=== PATIENT | male | born 1945 | race Caucasian/White ===

== ENCOUNTER 2016-05-07 12:11 | Outpatient (CLI) | payer MEDICARE, OTHER ==
[2016-05-07 12:48] LABS: #Basophils 0.1 thou/uL (0.0-0.2); #Eosinphils 0.2 thou/uL (0.0-0.7); #Lymphocytes 2.9 thou/uL (1.20-3.40); #Monocytes 0.8 thou/uL (0.11-0.59); #Neutrophils 5.7 thou/uL (1.40-6.50); %Basophils 1.4 % (0.0-1.0); %Eosinophils 2.4 % (0.0-10.0); %Lymphocytes 29.5 % (21.0-51.0); %Monocytes 8.1 % (0.0-10.0); %Neutrophils 58.5 % (42.0-75.0); Hemoglobin 15.9 g/dL (14.0-18.0); Mean Corpuscular HGB CONC 32.4 g/dL (32.0-36.0); Mean Corpuscular Hemoglobin 30.2 pg (27.0-31.0); Mean Corpuscular Volume 93.2 fl (80.0-94.0); Mean Platelet Volume 6.8 fL (7.4-10.4); Platelet Count 286 thou/uL (130-400); RBC Distribution Width 13.8 % (11.5-14.5); Red Blood Cell (RBC) Count 5.27 mill/uL (4.70-6.10); White Blood Cell (WBC) Count 9.7 thou/uL (4.8-10.8)
[2016-05-07 13:03] LABS: Anion Gap 18 mmol/L (10-20); Carbon Dioxide 27 mmol/L (23-31); Chloride 100 mmol/L (98-107); Potassium 4.7 mmol/L (3.5-5.1); Sodium 140 mmol/L (136-145)
[2016-05-07 13:04] LABS: ALT (SGPT) 27 U/L (0-55); AST (SGOT) 20 U/L (5-34); Albumin 4.4 g/dL (3.4-4.8); Alkaline Phosphatase 112 U/L (40-150); BUN (Urea Nitrogen) 19 mg/dL (8.4-25.7); Bilirubin, Total 0.5 mg/dL (0.2-1.2); CRP (Inflammatory) Less than 0.50 mg/dL (= or < 0.5); Calc. Creatinine Clearance 0 mL/min (70-130); Calcium 10.4 mg/dL (7.8-10.44); Cardiac Risk 6.3 (Less than 4.5); Cholesterol 220 mg/dL (< 200 Desired); Estimated GFR-MDRD 68; Glucose 106 mg/dL (83-110); HDL Cholesterol 35 mg/dL (>60 Neg Risk); LDL Cholesterol, Calculated 143 mg/dL; Protein, Total 7.4 g/dL (5.8-8.1); Triglycerides 208 mg/dL (Less than 150)
[2016-05-07 13:25] LABS: Free T4 (Free Thyroxine) 1.09 ng/dL (0.70-1.48); Thyroid Stimulating Hormone 2.4537 uIU/mL (0.35-4.94)
== END 2016-05-07 12:12 ==
LOC: MADLABBHPM 12:11
PROVIDERS: ATTEND Family Medicine
DX: R63.4 Abnormal weight loss (principal)
CPT/HCPCS: 36415; 80053; 80061; 84134; 84439; 84443; 85025; 85652; 86140; 86677; 87338

== ENCOUNTER 2017-01-17 12:29 | Emergency (ER) | payer MEDICARE, OTHER ==
[~2017-01-17 12:29] MED LIST: Iopamidol 370 76% 100 ML VIAL ONE; Sodium Chloride 0.9% 1,000 ML BAG ONE
[2017-01-17] MEDS ORDERED: Ketorolac Tromethamine 30 MG/ML VIAL ONE (12:41)
[2017-01-17] MEDS ORDERED: Ondansetron HCl/PF 4 MG/2 ML Vial ONE (12:41)
[2017-01-17 12:57] LABS: Prothrombin Time 13.7 SEC (12.0-14.7)
[2017-01-17 13:02] LABS: %Lymphocytes 21.5 % (21.0-51.0); %Monocytes 5.7 % (0.0-10.0); Hemoglobin 14.4 g/dL (14.0-18.0); Mean Corpuscular Hemoglobin 31.1 pg (27.0-31.0); Mean Corpuscular Volume 94.1 fl (80.0-94.0); Mean Platelet Volume 3.7 fL (7.4-10.4); Platelet Count 258 thou/uL (130-400); RBC Distribution Width 13.7 % (11.5-14.5); Red Blood Cell (RBC) Count 4.63 mill/uL (4.70-6.10); White Blood Cell (WBC) Count 13.6 thou/uL (4.8-10.8)
[2017-01-17 13:03] LABS: #Basophils 0.1 thou/uL (0.0-0.2); #Eosinphils 0.4 thou/uL (0.0-0.7); #Lymphocytes 2.9 thou/uL (1.20-3.40); #Monocytes 0.8 thou/uL (0.11-0.59); #Neutrophils 9.4 thou/uL (1.40-6.50); %Basophils 0.6 % (0.0-1.0); %Eosinophils 3.2 % (0.0-10.0)
[2017-01-17 13:06] LABS: BUN (Urea Nitrogen) 24 mg/dL (8.4-25.7); Calc. Creatinine Clearance 0 mL/min (70-130); Calcium 9.4 mg/dL (7.8-10.44); Carbon Dioxide 23 mmol/L (23-31); Chloride 105 mmol/L (98-107); Estimated GFR-MDRD 81; Glucose 126 mg/dL (83-110); Potassium 3.3 mmol/L (3.5-5.1); Sodium 141 mmol/L (136-145)
[2017-01-17 13:07] LABS: Anion Gap 17 mmol/L (10-20)
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
[2017-01-17] MEDS ORDERED: Adacel (T-DAP) 0.5 ML VIAL ONE (13:34)
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
[2017-01-17] MEDS ORDERED: Fentanyl 100 MCG/2 ML VIAL ONE (14:37)
== END 2017-01-17 14:52 | disposition short-term general hospital (02) ==
LOC: MADERS 12:29
DX: S32.502A Unspecified fracture of left pubis, initial encounter for closed fracture (principal); S32.501A Unspecified fracture of right pubis, initial encounter for closed fracture; S42.002A Fracture of unspecified part of left clavicle, initial encounter for closed fracture; R09.89 Other specified symptoms and signs involving the circulatory and respiratory systems; R91.1 Solitary pulmonary nodule; K21.9 Gastro-esophageal reflux disease without esophagitis; I10 Essential (primary) hypertension; F17.210 Nicotine dependence, cigarettes, uncomplicated; V09.9XXA Pedestrian injured in unspecified transport accident, initial encounter
CPT/HCPCS: 70450; 71260; 72125; 74177; 80048; 85025; 85610; 85730; 86850; 86900; 86901; 90715; 93005; 94760; 96361; 96374; 96375; J1170; J1885; J2405; J3010; J7050

== ENCOUNTER 2017-07-07 10:19 | Outpatient (CLI) | payer MEDICARE, OTHER ==
[2017-07-07 11:45] LABS: INR-International Normal Ratio 1.1; Prothrombin Time 14.1 SEC (12.0-14.7)
[2017-07-07 11:49] LABS: Anion Gap 17 mmol/L (10-20); BUN (Urea Nitrogen) 20 mg/dL (8.4-25.7); Calc. Creatinine Clearance 0 mL/min (70-130); Calcium 10.3 mg/dL (7.8-10.44); Carbon Dioxide 24 mmol/L (23-31); Chloride 102 mmol/L (98-107); Estimated GFR-MDRD 71; Glucose 98 mg/dL (83-110); Potassium 4.1 mmol/L (3.5-5.1); Sodium 139 mmol/L (136-145)
[2017-07-07 11:54] LABS: #Basophils 0.1 thou/uL (0.0-0.2); #Eosinphils 0.6 thou/uL (0.0-0.7); #Monocytes 0.6 thou/uL (0.11-0.59); #Neutrophils 7.2 thou/uL (1.40-6.50); %Basophils 1.2 % (0.0-1.0); %Eosinophils 5.7 % (0.0-10.0); %Lymphocytes 18.8 % (21.0-51.0); %Monocytes 6.2 % (0.0-10.0); %Neutrophils 68.2 % (42.0-75.0); Hemoglobin 16.1 g/dL (14.0-18.0); Mean Corpuscular HGB CONC 31.6 g/dL (32.0-36.0); Mean Corpuscular Hemoglobin 29.6 pg (27.0-31.0); Mean Corpuscular Volume 93.5 fL (80.0-94.0); Mean Platelet Volume 7.1 fL (7.4-10.4); Platelet Count 283 thou/uL (130-400); RBC Distribution Width 14.3 % (11.5-14.5); Red Blood Cell (RBC) Count 5.45 mill/uL (4.70-6.10); White Blood Cell (WBC) Count 10.5 thou/uL (4.8-10.8)
== END 2017-07-07 10:20 | disposition home or self-care (01) ==
LOC: MADLAB 10:19
PROVIDERS: ATTEND Anesthesiology Pain Medicine
DX: S32.010G Wedge compression fracture of first lumbar vertebra, subsequent encounter for fracture with delayed healing (principal); S32.020G Wedge compression fracture of second lumbar vertebra, subsequent encounter for fracture with delayed healing; S32.040G Wedge compression fracture of fourth lumbar vertebra, subsequent encounter for fracture with delayed healing; M46.1 Sacroiliitis, not elsewhere classified
CPT/HCPCS: 36415; 80048; 85025; 85610; 85730

== ENCOUNTER 2017-10-20 14:12 | Outpatient (CLI) | payer MEDICARE, OTHER ==
--- NOTE | 2017-10-20 15:38 | RAD ---
TWO VIEWS OF THE CHEST: COMPARISON: 09/02/17. HISTORY: CHF. FINDINGS: A single view of the chest shows a normal-size cardiomediastinal silhouette. There appears to be a s mall right pleural effusion. Increased interstitial lung markings are present. Degenerative changes are seen in the spine. IMPRESSION: Small right pleural effusion. POS: [facility]
== END 2017-10-20 14:13 | disposition home or self-care (01) ==
LOC: MADLAB 14:12
PROVIDERS: ATTEND Internal Medicine
DX: I50.9 Heart failure, unspecified (principal); J90 Pleural effusion, not elsewhere classified
CPT/HCPCS: 36415; 71046; 83880

== ENCOUNTER 2018-10-09 08:49 | Emergency (ER) | payer MEDICARE, OTHER ==
[~2018-10-09 08:49] MED LIST changes: -Iopamidol 370 76% 100 ML VIAL ONE
[2018-10-09] MEDS ORDERED: HYDROcodone/Acetaminophen 5/325 mg Tablet ONE (09:36)
[2018-10-09 09:38] LABS: #Basophils 0.1 thou/uL (0.0-0.2); #Eosinphils 0.2 thou/uL (0.0-0.7); #Lymphocytes 0.8 thou/uL (1.20-3.40); #Monocytes 0.5 thou/uL (0.11-0.59); #Neutrophils 9.9 thou/uL (1.40-6.50); %Basophils 1.1 % (0.0-1.0); %Eosinophils 1.6 % (0.0-10.0); %Lymphocytes 6.8 % (21.0-51.0); %Monocytes 4.7 % (0.0-10.0); %Neutrophils 85.9 % (42.0-75.0); Mean Corpuscular HGB CONC 32.8 g/dL (32.0-36.0); Mean Corpuscular Volume 91.5 fL (78.0-98.0); Mean Platelet Volume 6.4 fL (7.4-10.4); Platelet Count 313 thou/uL (130-400); RBC Distribution Width 16.1 % (11.5-14.5); Red Blood Cell (RBC) Count 4.33 mill/uL (4.70-6.10); White Blood Cell (WBC) Count 11.5 thou/uL (4.8-10.8)
[2018-10-09 09:50] LABS: ALT (SGPT) 21 U/L (8-55); AST (SGOT) 24 U/L (5-34); Albumin 3.6 g/dL (3.4-4.8); Alkaline Phosphatase 148 U/L (40-150); Anion Gap 18 mmol/L (10-20); BUN (Urea Nitrogen) 17 mg/dL (8.4-25.7); Bilirubin, Total 0.4 mg/dL (0.2-1.2); Calc. Creatinine Clearance 0 mL/min (70-130); Calcium 9.1 mg/dL (7.8-10.44); Carbon Dioxide 31 mmol/L (23-31); Chloride 99 mmol/L (98-107); Estimated GFR-MDRD 80; Globulin 3.4 g/dL (2.4-3.5); Glucose 98 mg/dL (83-110); Sodium 145 mmol/L (136-145)
--- NOTE | 2018-10-09 10:09 | RAD ---
EXAM: 3 views of the left shoulder HISTORY: Shoulder pain after injury COMPARISON: 06/30/2018 FINDINGS: There is a chronic fracture of the left proximal humerus with a small amount of surrounding callus and this may be partially healed. Degenerative changes are seen in the left shoulder. Multiple left rib fractures are seen. IMPRESSION: Remote left proximal humerus and the left rib fractures
[2018-10-09 10:11] LABS: Potassium 2.8 mmol/L (3.5-5.1)
[2018-10-09] MEDS ORDERED: Potassium Chloride 20 MEQ TAB ONE (10:16)
--- NOTE | 2018-10-09 10:33 | RAD ---
EXAM: Left rib series with chest x-ray HISTORY: Fall one week ago with left chest and rib pain COMPARISON: None FINDINGS: Single view of the chest shows a normal sized cardiomediastinal silhouette. Evaluation of t he chest is limited secondary to rotation. There is no evidence of consolidation, mass, or pleural effusion. There is absence of the left clavicle. Multiple views of the left ribs shows multiple remote healing left rib fractures. Acute on chronic fr actures cannot be excluded given the osteopenia and chronic fractures. No underlying pleural thickening or pneumothorax are seen. IMPRESSION: 1. Multiple chronic left rib fractures. Acute on chronic fractures cannot be excluded. 2. No evidence of acute cardiopulmonary disease.
== END 2018-10-09 12:45 | disposition short-term general hospital (02) ==
LOC: MADERS 08:49
DX: S22.42XA Multiple fractures of ribs, left side, initial encounter for closed fracture (principal); E87.6 Hypokalemia; K21.9 Gastro-esophageal reflux disease without esophagitis; I10 Essential (primary) hypertension; F17.210 Nicotine dependence, cigarettes, uncomplicated; W18.30XA Fall on same level, unspecified, initial encounter; Z79.899 Other long term (current) drug therapy
CPT/HCPCS: 36415; 80053; 83880; 84484; 85025; 93005; 94760; 96360; J7050

== ENCOUNTER 2019-01-29 14:52 | Inpatient (IN) | payer MEDICARE, OTHER ==
[2019-01-29] MEDS ORDERED: Acetaminophen 325 MG TAB PO PRN (15:43)
[2019-01-29] MEDS ORDERED: Ondansetron ODT 4 MG TAB PO PRN (15:43)
[2019-01-29] MEDS ORDERED: HYDROcodone/Acetaminophen 10/325 mg Tablet PO PRN (15:43)
[2019-01-29] MEDS: Megestrol Acetate 400 MG/10 ML UDCUP PO SCH (16:24)
[2019-01-29] MEDS ORDERED: HYDROcodone/Acetaminophen 10/325 mg Tablet PO SCH (17:30)
[2019-01-29] MEDS: traMADol HCl 50 MG TAB PO SCH ×2 (18:17→23:51)
[2019-01-29] MEDS: Arformoterol 15 MCG/2 ML NEB NEB SCH (21:26)
[2019-01-29] MEDS: clonazePAM 0.5 MG TAB PO SCH (21:38)
[2019-01-29] MEDS: Budesonide 0.25 MG/2 ML NEB NEB SCH (21:38)
[2019-01-29] MEDS: Mirtazapine 30 MG Soltab PO SCH (21:39)
[2019-01-29] MEDS: Famotidine 20 MG TAB PO SCH (21:39)
--- NOTE | 2019-01-30 00:35 | HP ---
PRIMARY CARE PHYSICIAN: Micha Harrison MD REASON FOR ADMISSION: For skilled rehabilitation at [facility], status post right intertrochanteric femur fracture, status post repair on January 27, 2019, by Dr. Jose Francisco Mercado. BRIEF HISTORY OF PRESENT ILLNESS: Mr. Montez is a pleasant 73-year-old male, who has a history of severe COPD with recent bilateral pulmonary embolism. The patient was leaving physical rehab in [place] when he lost his balance and fell in the driveway landing on his right side. The patient was subsequently brought to the emergency room, where he underwent an evaluation and was noted to have a right humeral head fracture and a right intertrochanteric femur fracture. The patient did not lose any consciousness. He was subsequently transferred to [facility] in [place] to be seen by the validation specialist. The patient underwent a right femur intramedullary nail repair on January 27, 2019, per Orthopedic Service, the right humerus fracture is nonoperative. The patient status post surgery had some delirium and this has progressively improved. The patient does have a history of severe COPD, on home oxygen; bilateral pulmonary edema; bilateral pulmonary emboli; history of lung cancer with partial lobectomy. He had episodes of shortness of breath and wheezing during hospitalization, and his oxygen had to be monitored closely. He wears a nasal cannula with 5 L and he declines to wear a Ventimask. Due to severe weakness, the decision was made for patient to follow up at [facility] for continuation of physical therapy prior to discharge back to his home. Upon evaluation of the patient today, initially when he came in, he was in severe pain, he was somewhat confused. The patient was able to be medicated with [place] and this improved this pain. I visited with the patient and he was very pleasant. He told me about what happened and he wanted Dr. Harrison to come see him. I notified him, he does not have privileges here, he requested that I continue taking care of him. The patient was appreciative of care, but declined wearing a mask. He agreed to DuoNeb treatments. He is excited to start physical therapy and do whatever we need to do to help with his progress. He complains of some constipation. Last bowel movement was 5 days ago prior to surgery. The patient denies any chest pain. Denies any palpitation. Denies any dizziness. ALLERGIES: NO KNOWN DRUG ALLERGIES. CODE STATUS: The patient states he wants to be a DNR. MEDICATIONS: 1. Amlodipine 10 mg daily. 2. Remeron 30 mg daily. 3. Clonazepam 0.5 q.p.m. 4. Brovana 15 mcg neb b.i.d. 5. Pulmicort 0.25 neb b.i.d. 6. Megace 625 daily. 7. Xarelto 10 mg daily. 8. Tramadol 50 q.6 scheduled. PAST MEDICAL HISTORY: Severe COPD, pulmonary embolism bilaterally, history of DVT, history of abdominal aortic aneurysm, history of lung cancer with partial lobectomy, peripheral vascular disease, and peptic ulcer. PAST SURGICAL HISTORY: Appendectomy, cholecystectomy, partial lobectomy and ruptured left common iliac artery aneurysm, now with status post right intertrochanteric femur fracture repair. SOCIAL HISTORY: The patient lives at home with his . He ambulates with a walker prior to this. He wears oxygen 4 to 5 L via nasal cannula. He has a 60- pack year smoking history. He denies illicit drug use or alcohol use. REVIEW OF SYSTEMS: GENERAL: The patient complains of weakness and complains of current pain. HEENT: Denies sore throat, dry mouth, vision changes or ear pain. CARDIOVASCULAR: Denies chest pain or palpitation. RESPIRATORY: Complains of cough and shortness of breath. ABDOMEN: Complains of constipation. PSYCHIATRY: Denies depression. Complains of anxiety. PHYSICAL EXAMINATION: VITAL SIGNS: Temperature 99.4, pulse 115, respirations 22, O2 saturation 92% on 5 L nasal cannula, and blood pressure 123/75. ASSESSMENT: 1. Physical debility. 2. Right humeral head fracture, nonoperative. 3. Right intertrochanteric femur fracture, status post repair. 4. Severe chronic obstructive pulmonary disease. 5. Bilateral pulmonary embolism. 6. History of lung cancer with partial lobectomy. 7. Delirium, resolving. 8. Constipation. PLAN: The patient has been admitted to [facility] bed. We will consult Physical Therapy to help with gait strengthening. We will consult Occupational Therapy to help with activities of daily living. We will place the patient on DuoNeb, scheduled q.4. We will resume home medications. We will continue oxygen on nasal cannula. We will resume the patient's Eliquis due to recent bilateral pulmonary emboli. We will resume all the patient's home medications. LENGTH OF STAY: 3 to 4 weeks. Job ID: [id number] MTDD
[2019-01-30] MEDS: traMADol HCl 50 MG TAB PO SCH ×4 (05:46→23:54)
[2019-01-30] MEDS: Megestrol Acetate 400 MG/10 ML UDCUP PO SCH ×3 (08:58→17:33)
[2019-01-30] MEDS: Famotidine 20 MG TAB PO SCH ×2 (08:58→20:45)
[2019-01-30] MEDS: Amlodipine 5 MG TAB PO SCH (08:58)
[2019-01-30] MEDS: Rivaroxaban 10 MG TAB PO SCH (08:59)
[2019-01-30] MEDS: Arformoterol 15 MCG/2 ML NEB NEB SCH ×2 (08:59→20:41)
[2019-01-30] MEDS ORDERED: FLU VACC TS2019-20(65YR UP)/PF 180 MCG/0.5 ML SYRINGE IM ONE (09:00)
[2019-01-30] MEDS ORDERED: Ipratropium Bromide 2.5 ml Neb NEB SCH (09:00)
[2019-01-30] MEDS: Budesonide 0.25 MG/2 ML NEB NEB SCH ×2 (09:06→20:42)
[2019-01-30] MEDS: HYDROcodone/Acetaminophen 10/325 mg Tablet PO PRN (10:36)
[2019-01-30] MEDS: clonazePAM 0.5 MG TAB PO SCH (20:44)
[2019-01-30] MEDS: Mirtazapine 30 MG Soltab PO SCH (20:45)
[2019-01-31] MEDS: traMADol HCl 50 MG TAB PO SCH ×4 (05:31→23:53)
[2019-01-31] MEDS: Amlodipine 5 MG TAB PO SCH (07:47)
[2019-01-31] MEDS: HYDROcodone/Acetaminophen 10/325 mg Tablet PO PRN (07:47)
[2019-01-31] MEDS: Famotidine 20 MG TAB PO SCH ×2 (07:48→20:50)
[2019-01-31] MEDS: Rivaroxaban 10 MG TAB PO SCH (07:48)
[2019-01-31] MEDS: Arformoterol 15 MCG/2 ML NEB NEB SCH ×2 (07:49→20:51)
[2019-01-31] MEDS: Megestrol Acetate 400 MG/10 ML UDCUP PO SCH ×3 (07:50→16:55)
[2019-01-31] MEDS: Budesonide 0.25 MG/2 ML NEB NEB SCH ×2 (07:51→20:52)
[2019-01-31] MEDS: clonazePAM 0.5 MG TAB PO SCH (20:49)
[2019-01-31] MEDS: Docusate 100 MG CAP PO SCH (20:50)
[2019-01-31] MEDS: Mirtazapine 30 MG Soltab PO SCH (20:50)
[2019-02-01] MEDS: traMADol HCl 50 MG TAB PO SCH ×4 (05:30→23:11)
[2019-02-01] MEDS: Amlodipine 5 MG TAB PO SCH (08:42)
[2019-02-01] MEDS: Megestrol Acetate 400 MG/10 ML UDCUP PO SCH ×3 (08:42→17:20)
[2019-02-01] MEDS: Rivaroxaban 10 MG TAB PO SCH (09:05)
[2019-02-01] MEDS: Famotidine 20 MG TAB PO SCH ×2 (09:05→20:31)
[2019-02-01] MEDS: Docusate 100 MG CAP PO SCH ×2 (09:06→20:31)
[2019-02-01] MEDS: Budesonide 0.25 MG/2 ML NEB NEB SCH ×2 (09:06→20:35)
[2019-02-01] MEDS: Arformoterol 15 MCG/2 ML NEB NEB SCH ×2 (09:06→20:29)
[2019-02-01] MEDS: HYDROcodone/Acetaminophen 10/325 mg Tablet PO PRN (10:53)
[2019-02-01] MEDS: clonazePAM 0.5 MG TAB PO SCH (20:34)
[2019-02-01] MEDS: Mirtazapine 30 MG Soltab PO SCH (20:34)
[2019-02-02] MEDS: traMADol HCl 50 MG TAB PO SCH ×3 (05:03→17:50)
[2019-02-02] MEDS: Megestrol Acetate 400 MG/10 ML UDCUP PO SCH ×3 (07:19→17:51)
[2019-02-02] MEDS: Budesonide 0.25 MG/2 ML NEB NEB SCH ×2 (08:58→20:28)
[2019-02-02] MEDS: Amlodipine 5 MG TAB PO SCH (08:59)
[2019-02-02] MEDS: Docusate 100 MG CAP PO SCH ×2 (08:59→20:28)
[2019-02-02] MEDS: Arformoterol 15 MCG/2 ML NEB NEB SCH ×2 (08:59→20:29)
[2019-02-02] MEDS: Rivaroxaban 10 MG TAB PO SCH (09:00)
[2019-02-02] MEDS: Famotidine 20 MG TAB PO SCH ×2 (09:00→20:28)
[2019-02-02] MEDS: HYDROcodone/Acetaminophen 10/325 mg Tablet PO PRN ×2 (09:03→19:34)
[2019-02-02] MEDS: ALPRAZolam 0.25 MG TAB PO PRN ×2 (15:20→19:35)
[2019-02-02] MEDS: Mirtazapine 30 MG Soltab PO SCH (20:28)
[2019-02-02] MEDS: clonazePAM 0.5 MG TAB PO SCH (20:31)
[2019-02-03] MEDS: traMADol HCl 50 MG TAB PO SCH ×4 (01:31→17:25)
[2019-02-03] MEDS: Megestrol Acetate 400 MG/10 ML UDCUP PO SCH ×3 (08:34→16:51)
[2019-02-03] MEDS: Arformoterol 15 MCG/2 ML NEB NEB SCH ×2 (08:34→20:34)
[2019-02-03] MEDS: Amlodipine 5 MG TAB PO SCH (08:35)
[2019-02-03] MEDS: Famotidine 20 MG TAB PO SCH ×2 (08:35→20:42)
[2019-02-03] MEDS: Rivaroxaban 10 MG TAB PO SCH (08:35)
[2019-02-03] MEDS: Docusate 100 MG CAP PO SCH ×2 (08:36→20:42)
[2019-02-03] MEDS: Budesonide 0.25 MG/2 ML NEB NEB SCH ×2 (08:44→20:34)
[2019-02-03] MEDS: clonazePAM 0.5 MG TAB PO SCH (20:41)
[2019-02-03] MEDS: Mirtazapine 30 MG Soltab PO SCH (20:43)
[2019-02-04] MEDS: traMADol HCl 50 MG TAB PO SCH ×4 (00:14→17:32)
[2019-02-04] MEDS: ALPRAZolam 0.25 MG TAB PO PRN (00:44)
[2019-02-04 06:12] LABS: Hemoglobin 10.1 g/dL (14.0-18.0); Platelet Count 506 thou/uL (130-400)
[2019-02-04 06:24] LABS: Anion Gap 15 mmol/L (10-20); BUN (Urea Nitrogen) 13 mg/dL (8.4-25.7); Calc. Creatinine Clearance 76 mL/min (70-130); Calcium 9.8 mg/dL (7.8-10.44); Carbon Dioxide 28 mmol/L (23-31); Chloride 102 mmol/L (98-107); Estimated GFR-MDRD 90; Glucose 104 mg/dL (83-110); Potassium 3.8 mmol/L (3.5-5.1); Sodium 141 mmol/L (136-145)
[2019-02-04] MEDS: Amlodipine 5 MG TAB PO SCH (08:32)
[2019-02-04] MEDS: Budesonide 0.25 MG/2 ML NEB NEB SCH ×2 (08:32→20:47)
[2019-02-04] MEDS: Arformoterol 15 MCG/2 ML NEB NEB SCH ×2 (08:32→20:48)
[2019-02-04] MEDS: Docusate 100 MG CAP PO SCH ×2 (08:33→20:48)
[2019-02-04] MEDS: Rivaroxaban 10 MG TAB PO SCH (08:33)
[2019-02-04] MEDS: Megestrol Acetate 400 MG/10 ML UDCUP PO SCH ×3 (08:34→16:43)
[2019-02-04] MEDS: Famotidine 20 MG TAB PO SCH ×2 (08:34→20:48)
[2019-02-04] MEDS: clonazePAM 0.5 MG TAB PO SCH (20:48)
[2019-02-04] MEDS: Mirtazapine 30 MG Soltab PO SCH (20:48)
[2019-02-05] MEDS: traMADol HCl 50 MG TAB PO SCH ×5 (00:28→18:33)
[2019-02-05] MEDS: Megestrol Acetate 400 MG/10 ML UDCUP PO SCH ×3 (08:20→17:36)
[2019-02-05] MEDS: Amlodipine 5 MG TAB PO SCH (08:21)
[2019-02-05] MEDS: Rivaroxaban 10 MG TAB PO SCH (08:21)
[2019-02-05] MEDS: Famotidine 20 MG TAB PO SCH ×2 (08:22→21:25)
[2019-02-05] MEDS: Docusate 100 MG CAP PO SCH ×2 (08:22→21:25)
[2019-02-05] MEDS: Arformoterol 15 MCG/2 ML NEB NEB SCH ×2 (08:24→21:23)
[2019-02-05] MEDS: Budesonide 0.25 MG/2 ML NEB NEB SCH ×2 (08:24→21:24)
[2019-02-05] MEDS: HYDROcodone/Acetaminophen 10/325 mg Tablet PO PRN ×2 (08:32→16:00)
[2019-02-05] MEDS: ALPRAZolam 0.25 MG TAB PO PRN (16:00)
--- NOTE | 2019-02-05 16:18 | RAD ---
XR Ribs Rt>=2 view STANDARD History: Rib pain Comparison: None. Findings: Multiple mildly displaced right-sided rib fractures. No pneumothorax. Small to moderate eff usion. Right humeral head/neck fracture is similar. Impression: Multiple mildly displaced right-sided rib fractures.
[2019-02-05] MEDS: Mirtazapine 30 MG Soltab PO SCH (21:25)
[2019-02-05] MEDS: clonazePAM 0.5 MG TAB PO SCH (21:25)
[2019-02-06] MEDS: traMADol HCl 50 MG TAB PO SCH ×4 (00:48→18:16)
[2019-02-06] MEDS: Amlodipine 5 MG TAB PO SCH (09:05)
[2019-02-06] MEDS: Megestrol Acetate 400 MG/10 ML UDCUP PO SCH ×3 (09:05→16:49)
[2019-02-06] MEDS: HYDROcodone/Acetaminophen 10/325 mg Tablet PO PRN (09:06)
[2019-02-06] MEDS: Docusate 100 MG CAP PO SCH ×2 (09:06→20:25)
[2019-02-06] MEDS: Budesonide 0.25 MG/2 ML NEB NEB SCH ×2 (09:06→20:24)
[2019-02-06] MEDS: Rivaroxaban 10 MG TAB PO SCH (09:06)
[2019-02-06] MEDS: Arformoterol 15 MCG/2 ML NEB NEB SCH ×2 (09:06→20:23)
[2019-02-06] MEDS: Famotidine 20 MG TAB PO SCH ×2 (09:06→20:25)
[2019-02-06] MEDS: Mirtazapine 30 MG Soltab PO SCH (20:25)
[2019-02-06] MEDS: clonazePAM 0.5 MG TAB PO SCH (20:25)
[2019-02-07] MEDS: traMADol HCl 50 MG TAB PO SCH ×4 (00:48→18:34)
[2019-02-07 05:37] LABS: Hemoglobin 9.4 g/dL (14.0-18.0); Platelet Count 530 thou/uL (130-400)
[2019-02-07] MEDS: Amlodipine 5 MG TAB PO SCH (08:39)
[2019-02-07] MEDS: Docusate 100 MG CAP PO SCH ×2 (08:40→20:46)
[2019-02-07] MEDS: Famotidine 20 MG TAB PO SCH ×2 (08:40→20:49)
[2019-02-07] MEDS: Rivaroxaban 10 MG TAB PO SCH (08:40)
[2019-02-07] MEDS: Budesonide 0.25 MG/2 ML NEB NEB SCH ×2 (08:40→20:47)
[2019-02-07] MEDS: Megestrol Acetate 400 MG/10 ML UDCUP PO SCH ×3 (08:53→16:54)
[2019-02-07] MEDS: Polyethylene Glycol 3350 17 GM Packet PO SCH (08:56)
[2019-02-07] MEDS: Arformoterol 15 MCG/2 ML NEB NEB SCH ×2 (08:56→20:47)
[2019-02-07] MEDS: HYDROcodone/Acetaminophen 10/325 mg Tablet PO PRN (20:45)
[2019-02-07] MEDS: ALPRAZolam 0.25 MG TAB PO PRN (20:45)
[2019-02-07] MEDS: Mirtazapine 30 MG Soltab PO SCH (20:46)
[2019-02-07] MEDS: clonazePAM 0.5 MG TAB PO SCH (20:48)
[2019-02-08] MEDS: traMADol HCl 50 MG TAB PO SCH ×4 (00:41→18:00)
[2019-02-08] MEDS: Megestrol Acetate 400 MG/10 ML UDCUP PO SCH ×3 (08:24→17:19)
[2019-02-08] MEDS: Rivaroxaban 10 MG TAB PO SCH (08:26)
[2019-02-08] MEDS: Docusate 100 MG CAP PO SCH ×2 (08:26→20:27)
[2019-02-08] MEDS: Amlodipine 5 MG TAB PO SCH (08:26)
[2019-02-08] MEDS: Famotidine 20 MG TAB PO SCH ×2 (08:26→20:27)
[2019-02-08] MEDS: Budesonide 0.25 MG/2 ML NEB NEB SCH ×2 (08:27→20:27)
[2019-02-08] MEDS: Polyethylene Glycol 3350 17 GM Packet PO SCH (08:32)
[2019-02-08] MEDS: Arformoterol 15 MCG/2 ML NEB NEB SCH ×2 (08:32→20:26)
[2019-02-08 14:40] VITALS: BMI 23.6
[2019-02-08] MEDS: clonazePAM 0.5 MG TAB PO SCH (20:24)
[2019-02-08] MEDS: ALPRAZolam 0.25 MG TAB PO PRN (20:24)
[2019-02-08] MEDS: HYDROcodone/Acetaminophen 10/325 mg Tablet PO PRN (20:25)
[2019-02-08] MEDS: Mirtazapine 30 MG Soltab PO SCH (20:28)
[2019-02-09] MEDS: ALPRAZolam 0.25 MG TAB PO PRN ×2 (06:00→11:55)
[2019-02-09 06:54] VITALS: BP 133/71; TEMP 98.9
[2019-02-09] MEDS: Rivaroxaban 10 MG TAB PO SCH (08:29)
[2019-02-09] MEDS: Megestrol Acetate 400 MG/10 ML UDCUP PO SCH ×2 (08:29→11:56)
[2019-02-09] MEDS: Docusate 100 MG CAP PO SCH (08:29)
[2019-02-09] MEDS: Famotidine 20 MG TAB PO SCH (08:29)
[2019-02-09] MEDS: Amlodipine 5 MG TAB PO SCH (08:29)
[2019-02-09] MEDS: Polyethylene Glycol 3350 17 GM Packet PO SCH (08:30)
[2019-02-09] MEDS: Budesonide 0.25 MG/2 ML NEB NEB SCH (08:30)
[2019-02-09] MEDS: Arformoterol 15 MCG/2 ML NEB NEB SCH (08:30)
--- NOTE | 2019-02-10 15:18 | DIS ---
DATE OF ADMISSION: 01/29/2019 DATE OF DISCHARGE: 02/09/2019 PRIMARY CARE PHYSICIAN: Micha Harrison MD DISCHARGE DIAGNOSES: 1. Severe chronic obstructive pulmonary disease with hypoxia. 2. Physical debility. 3. Right intertrochanteric femur fracture status post open reduction and internal fixation. 4. Right humeral head fracture, nonoperative. 5. Multiple right rib mildly displaced fractures. 6. Gait instability. SECONDARY DIAGNOSES: History of bilateral pulmonary embolism, history of lung cancer status post partial lobectomy, depression with anxiety, intermittent delirium. DISCHARGE DISPOSITION: To home with [facility]. DISCHARGE MEDICATIONS: 1. Xanax 0.25 t.i.d. p.r.n. 2. Norvasc 10 daily. 3. Brovana 15 mcg neb b.i.d. 4. Pulmicort nebs b.i.d. 5. Clonazepam 0.5 q.p.m. 6. [place] 10/325 one tablet q.4 hours p.r.n. pain. 7. MiraLAX 17 daily. 8. Xarelto 10 mg daily. 9. Remeron 30 mg at bedtime. 10. Megace 625 mg p.o. before meals scheduled. ACTIVITY: The patient to use oxygen at all times. [facility] to remove right lateral hip kirsten, February 10, 2019. Ambulate with walker and assistance at all times. BRIEF HOSPITAL COURSE: Mr. Robert Montez is a pleasant 73-year-old male with a history of severe COPD, bilateral pulmonary embolism. The patient sustained a fall while leaving his physical therapy, January 26, 2019. He was seen in the emergency room and noted to have a right humeral head fracture and right intertrochanteric femur fracture. The patient underwent an ORIF on January 27, 2019. He had some delirium status post surgery, but this progressively improved. The patient does have severe COPD and on home oxygen. He continues to smoke. He uses nasal cannula 5 L and declines very fast. The patient, due to physical debility and his respiratory status, decided to come to [facility] for swing bed rehabilitation prior to discharge back to his home. During hospitalization, the patient continued to have occasional respiratory distress. DuoNeb was scheduled and given as needed. The patient was able to participate in physical therapy and he tolerated this sometimes and sometimes he was not really able to participate. The patient's pain medications were adjusted and he states the pain would always be never too well controlled. The patient during hospitalization was noted to guard his right rib and right lower abdominal area. X-ray was done which showed multiple mildly displaced rib fractures. During hospitalization, the patient requested to go smoke multiple times outside though we have no smoking policy and the patient was upset due to this. Family members attempted to take the patient out one time and noted that his oxygen saturation significantly became low and the patient declined going outside. After family discussion with the patient, the decision was made as the patient wanted to go home to and the patient agreed to be on hospice care and the patient's son, Richy Montez who has [id number] was also in agreement with this. In addition to patient's long-term girlfriend, Ms. Johnson who has been his girlfriend and lives with him for the past 12 years. Family, Richy Montez and his agreed they would be coming to patient's home to help Mr. Montez be taken care of by his girlfriend. On February 09, the patient was subsequently discharged home with [facility] by request and he was transported via EMS as he was unable to get into a private car. Job ID: [id number] [facility]
--- NOTE | 2019-02-11 04:45 | PQF ---
[facility] Registered Nurse Crystal Reports Winform ViewerTRINA GERARD IVON HERNANDEZ [id number] CLINICAL DOCUMENTATION CLARIFICATION FORM: POST DISCHARGE Addendum to original discharge summary date: ____ Late entry note date: __ DATE: 02/11/2019 ATTN: IVON HERNANDEZ Please exercise your independent, professional judgment in responding to the clarification form. Clinical indicators are provided on the bottom of this form for your review Please check appropriate box(s): [ ] Acute Respiratory Failure: [ ] with Hypoxia[ ] with Hypercapnia [ ] Acute On Chronic Respiratory Failure: [ ] with Hypoxia [ ] with Hypercapnia [ ] Acute Respiratory Failure due to: (etiology) [ ] ARDS (Acute Respiratory Distress Syndrome) [ ] Chronic Respiratory Failure only [ ] with Hypoxia [ ] with Hypercapnia [ ] Hypoxia [ ] Other diagnosis [ ] Unable to determine In addition, please specify: Present on Admission (POA): [ ] Yes [ ] No [ ] Unable to determine For continuity of documentation, please document condition throughout progress notes and discharge summary. Thank You. CLINICAL INDICATORS - SIGNS / SYMPTOMS / LABS Patient on Home Oxysgen - Documented in H&P on 01/29 by IVON HERNANDEZ He had episode of SOB and wheezing during hospitalization and his O2 had to be monitored - Documented in H&P on 01/29 by IVON HERNANDEZ Severe COPD with Hypoxia - Documented in DS on 02/09 by IVON HERNANDEZ Due to physical debility and his respiratory status decided swing bed - IVON HERNANDEZ O2 saturation 92 on02/04 and 90 on 02/09 - Documented in Vital reports RR 24 on 02/05 - Documented in Vital reports RISK [employer]CTORS Hx of COPD - Documented in H&P on 01/29 by IVON HERNANDEZ Hx of lung cancer - Documented in H&P on 01/29 by IVON HERNANDEZ Hx PE - Documented in H&P on 01/29 by IVON HERNANDEZ Smoker TREATMENTS: He wears Nasal cannula with 5L and he declines to wear ventimask - Documented in H&P on 01/29 by IVON HERNANDEZ Duoneb treatment We will continue O2 on Nasl Cannula - Documented in H&P on 01/29 by IVON HERNANDEZ (This form is maintained as a part of the permanent medical record) 2014 [employer] All Rights Reserved [email or web address] [not provided] MTDD
== END 2019-02-09 15:47 | disposition hospice, home (50) | DRG 948 ==
LOC: MADMS 14:52
PROVIDERS: ADMIT Family Medicine; ATTEND Family Medicine
DX: R53.1 Weakness (principal); R53.81 Other malaise; R26.9 Unspecified abnormalities of gait and mobility; Z66 Do not resuscitate; Z79.899 Other long term (current) drug therapy; J44.9 Chronic obstructive pulmonary disease, unspecified; Z90.49 Acquired absence of other specified parts of digestive tract; Z87.11 Personal history of peptic ulcer disease; Z85.118 Personal history of other malignant neoplasm of bronchus and lung; S42.201D Unspecified fracture of upper end of right humerus, subsequent encounter for fracture with routine healing; S72.141D Displaced intertrochanteric fracture of right femur, subsequent encounter for closed fracture with routine healing; W18.30XD Fall on same level, unspecified, subsequent encounter; R41.0 Disorientation, unspecified; K59.00 Constipation, unspecified; F32.9 Major depressive disorder, single episode, unspecified; F41.9 Anxiety disorder, unspecified; Z86.711 Personal history of pulmonary embolism; R09.02 Hypoxemia; Z99.81 Dependence on supplemental oxygen; F17.200 Nicotine dependence, unspecified, uncomplicated; S22.41XD Multiple fractures of ribs, right side, subsequent encounter for fracture with routine healing; Z86.718 Personal history of other venous thrombosis and embolism
CPT/HCPCS: 36415; 80048; 85014; 85018; 85049; J7620; J7626